=== PATIENT | female | born 1960 | race Caucasian/White ===

== ENCOUNTER → 2020-08-03 10:29 | Outpatient (CLI) | payer BC, SELFPAY ==
--- NOTE | ~2020-08-03 | XR_ITS ---
XR thoracic spine 3V 08/03/2020 10:55 Indication: Thoracic back pain Procedure: 3 views thoracic spine Comparison: No prior studies for comparison. Findings: Normal thoracic kyphosis. There is mild multilevel thoracic spondylosis. No fracture or tra umatic malalignment. No paraspinal soft tissue abnormality. Surrounding osseous structures and soft t issues are unremarkable. Impression: 1: Mild thoracic spondylosis. Reviewed, dictated and finalized at location A. Impression: 1: Mild thoracic spondylosis.
== END ==
PROVIDERS: PCP Physician Assistant; Visit Provider Physician Assistant
DX: M47.894 Other spondylosis, thoracic region (principal)
CPT/HCPCS: 72072